=== PATIENT | female | born 1975 | race African-American/Black ===

== ENCOUNTER 2017-12-22 16:06 | Inpatient (IN) | payer OTHER ==
[~2017-12-22] VITALS: Ht 167.6 cm; Wt 134.3 kg
--- NOTE | ~2017-12-22 | EKG ---
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1975 Requested By: Jey Webster Order Number: [id number] MD: Sebastian Arevalo Measurements Intervals [place] Rate: 74 P: 57 PA: 165 QRS: 4 QRSD: 81 T: 28 QT: 380 QTc: 422 Interpretive Statements Sinus rhythm Poor R wave progression Compared to ECG 01/16/2015 22:03:50 Sinus tachycardia no longer present ST (T wave) deviation no longer present Electronically Signed On 12-23-2017 8:41:42 CDT by Sebastian Arevalo [email or web address] <ELECTRONICALLY SIGNED> By: Sebastian Arevalo MD, [facility] 12/23/17 0841 [id number] 1640 Sebastian Arevalo MD, FAC /EPI
--- NOTE | ~2017-12-22 | HC ---
[facility] [place] [address] CONSULTATION Name: MATTHIEU LOW Room #: 360-[facility] IN M.R.#: [id number] Admission: 12/22/17 Attend Phys: Steph West Discharge: Date of : 71 Report #: [id number] THIS REPORT FOR: //name// CC: SHENG physician/PCP Steph West HISTORY OF PRESENT ILLNESS: The patient is a 42-year-old female who presented to the Emergency Room with headache and right facial numbness. It was also discovered that the patient had right upper extremity numbness at the same time. The Emergency Room physician was concerned that the patient might be having a stroke, so further diagnostic studies were ordered for the patient. The CT head and the CT perfusion study were unremarkable. The patient does have a history of migraine headache, but has never had facial numbness as a symptom. The patient was admitted for further evaluation. PAST MEDICAL HISTORY: Hypertension, type 2 diabetes, hypothyroidism, history of pulmonary embolus, morbid obesity, migraine headache, anxiety. PAST SURGICAL HISTORY: Noncontributory. MEDICATIONS AT HOME: Furosemide 20 mg daily, Protonix 40 mg daily, Lorazepam 1 mg t.i.d. p.r.n. anxiety, Glucophage 500 mg b.i.d., aspirin 81 mg daily, hydrocodone 5 mg 1-2 tablets p.o. q. 4 hours p.r.n. pain. ALLERGIES: COMPAZINE, METOCLOPRAMIDE, MORPHINE. PHYSICAL EXAMINATION: VITAL SIGNS: Temperature 36.3, pulse rate 71, respiratory rate 18, blood pressure 123/65, bedside pulse oximetry 95% on room air. NEUROLOGIC: Cranial nerves 2-12 are grossly intact. Motor exam demonstrates symmetrical strength in all 4 extremities with tone and bulk normal. Reflexes are symmetrical throughout. Coordination reveals intact mzyyyj-rm-dgmy. Gait is not tested. LABORATORY DATA: White blood cell count 7.2, hemoglobin 12.9, hematocrit 37.1, MCV 79.1, platelet count 218,000. Coagulation: INR 1. Chemistry: Sodium 135, potassium 3.9, chloride 104, carbon dioxide 24, BUN 13, creatinine 1, GFR 73, glucose 89, calcium 9.2, cholesterol 217, LDL cholesterol 128, HDL cholesterol 60. Vitamin B12 459. Folate 5.8. TSH 1.6. IMAGING STUDIES: CT scan of the head unremarkable. CT angiography unremarkable. IMPRESSION AND PLAN: This patient has intractable headache. I have ordered an MRI of the head to evaluate for stroke. However, I suspect the patient's paresthesias are most likely related [place] [address] CONSULTATION Name: MATTHIEU LOW Room #: 360[facility] IN .R.#: [id number] Admission: 12/22/17 Attend Phys: Steph West Discharge: Date of : 71 Report #: [id number] I have ordered Depacon 125 mg IV q. 6 hours and methylprednisolone 60 mg IV q. 8 hours to try to break the headache cycle. I will continue to follow the patient with you. <ELECTRONICALLY SIGNED> By: Anamaria Hoover DO 12/24/17 1025 1857 27 Anamaria Hoover DO /nt
[~2017-12-22 16:06] MED LIST: ATIVAN1 MG PO; CHILDREN'S ASPI81 MG PO; FIORICET PO; FUROSEMIDE 20 M20 MG PO; IBUPROFEN 600600 M1 PO; METFORMIN HCL500 MG PO; NORCO 5-325 TA1 EACH PO; PROTONIX40 M1 PO; TOPAMAX25 M1 PO; VALIUM5 MG PO; ZOFRAN ODT4 MG PO
[2017-12-22 16:09] VITALS: BP 163/80
[2017-12-22 17:11] LABS: ANION GAP 7 mmol/L (7-16); BUN 13 mg/dL (7-18); CALCIUM 9.2 mg/dL (8.5-10.1); CHLORIDE 104 mmol/L (98-107); CO2 24 mmol/L (21-32); GLUCOSE 89 mg/dL (74-106); POTASSIUM 3.9 mmol/L (3.5-5.1); SODIUM 135 mmol/L (136-145)
[2017-12-22 17:20] LABS: TROPONIN-I <0.06 ng/mL (<0.06)
[2017-12-22 18:43] LABS: CHOLESTEROL 217 mg/dL (<200); HDL CHOLESTEROL 60 mg/dL (>40); LDL CHOLESTEROL 128 mg/dL (<100); TC:HDL 3.6 Ratio (Not establshd); TRIGLYCERIDE 148 mg/dL (<150); VLDL 30 mg/dL (<40)
[2017-12-22 18:43] LABS: HEMATOCRIT 37.1 % (37.0-47.0); HEMOGLOBIN 12.9 gm/dL (12.0-15.0); MCH 27.6 pg (26.0-34.0); MCHC 34.9 g/dL (28.0-37.0); MCV 79.1 fL (80.0-100.0); RBC 4.69 mil/uL (4.20-5.00); WBC 7.2 thou/uL (4.0-11.0)
[2017-12-22 18:56] LABS: APTT 22.9 Seconds (24.5-32.8); PROTIME 10.2 Seconds (9.3-11.4)
[2017-12-22 18:57] VITALS: BP 124/52
[2017-12-22 19:42] LABS: FOLIC ACID 5.8 ng/mL (8.6-58.9); TSH 1.676 uIU/mL (0.358-3.740)
[2017-12-22 21:29] VITALS: BP 118/58
[2017-12-23 04:58] VITALS: BP 104/51
[2017-12-23 07:47] VITALS: BP 109/60
[2017-12-23 12:10] VITALS: BP 123/65
[2017-12-23 15:48] VITALS: BP 137/80
[2017-12-23 19:16] VITALS: BP 114/54
[2017-12-24 04:04] VITALS: BP 151/81
[2017-12-24 07:40] VITALS: BP 139/80
[2017-12-24] MEDS ORDERED: NORCO 5-325 TA1 EACH PO (10:22)
[2017-12-24] MEDS ORDERED: IMITREX100 MG PO (10:23)
[2017-12-24 10:33] VITALS: BP 139/80
== END 2017-12-24 14:30 | disposition home or self-care (01) | DRG 103 ==
LOC: ER 16:06 → EROBS 18:18 → 3W 18:18
PROVIDERS: Emergency Medicine; Hospitalist
DX: G43.909 Migraine, unspecified, not intractable, without status migrainosus (principal); G45.9 Transient cerebral ischemic attack, unspecified; Z68.42 Body mass index [BMI] 45.0-49.9, adult; F41.9 Anxiety disorder, unspecified; I10 Essential (primary) hypertension; E11.9 Type 2 diabetes mellitus without complications; E03.9 Hypothyroidism, unspecified; E66.01 Morbid (severe) obesity due to excess calories; E78.5 Hyperlipidemia, unspecified; R13.10 Dysphagia, unspecified; Z87.828 Personal history of other (healed) physical injury and trauma; Z88.6 Allergy status to analgesic agent; Z88.8 Allergy status to other drugs, medicaments and biological substances; Z86.711 Personal history of pulmonary embolism; Z79.82 Long term (current) use of aspirin; Z79.899 Other long term (current) drug therapy
CPT/HCPCS: 10879

== ENCOUNTER 2021-02-02 22:50 | Emergency (ER) | payer BC ==
[~2021-02-02] VITALS: Ht 167.6 cm; Wt 124.7 kg
[~2021-02-02 22:50] MED LIST changes: +IMITREX100 MG PO
[2021-02-02 23:24] LABS: ABSOLUTE NEUTROPHILS 3.5 thou/uL (1.4-8.2); BASOPHILS 1.5 % (0.0-2.0); EOSINOPHILS 1.7 % (0.0-3.0); HEMATOCRIT 38.6 % (37.0-47.0); HEMOGLOBIN 12.8 gm/dL (12.0-15.0); LYMPHOCYTES 41.7 % (24.0-44.0); MCH 26.1 pg (26.0-34.0); MCHC 33.3 g/dL (28.0-37.0); MCV 78.3 fL (80.0-100.0); PLATELET COUNT 281 thou/uL (150-400); POLYS 48.1 % (36.0-66.0); RBC 4.93 mil/uL (4.20-5.00); RDW 13.8 % (10.5-14.5); WBC 7.2 thou/uL (4.0-11.0)
[2021-02-02 23:39] LABS: ANION GAP 8 mmol/L (7-16); BUN 18 mg/dL (7-18); CALCIUM 8.5 mg/dL (8.5-10.1); CHLORIDE 105 mmol/L (98-107); CO2 22 mmol/L (21-32); CREATININE 0.9 mg/dL (0.6-1.0); GLUCOSE 81 mg/dL (74-106); POTASSIUM 4.8 mmol/L (3.5-5.1); SODIUM 135 mmol/L (136-145)
[2021-02-03 04:57] VITALS: BP 111/58
--- NOTE | 2021-02-03 12:05 | EKG ---
[place] [address] [facility] [place] [address] ELECTROCARDIOGRAM REPORT Name: MATTHIEU LOW Room #: [facility] Ruth#: [id number] Admission: 02/02/21 Attend Phys: Discharge: 02/03/21 Date of : 71 Report #: [id number] 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
== END 2021-02-03 05:00 | disposition home or self-care (01) ==
LOC: ER 22:50
PROVIDERS: Student in an Organized Health Care Education/Training Program
DX: R07.89 Other chest pain (principal); G43.909 Migraine, unspecified, not intractable, without status migrainosus; F41.9 Anxiety disorder, unspecified; E11.9 Type 2 diabetes mellitus without complications; Z79.891 Long term (current) use of opiate analgesic; Z79.84 Long term (current) use of oral hypoglycemic drugs; Z79.82 Long term (current) use of aspirin; Z79.899 Other long term (current) drug therapy; Z88.6 Allergy status to analgesic agent; Z88.3 Allergy status to other anti-infective agents; Z88.5 Allergy status to narcotic agent; Z91.048 Other nonmedicinal substance allergy status